=== PATIENT | female | born 1985 | race Caucasian/White ===

== ENCOUNTER 2024-09-20 19:31 | Outpatient (REF) | payer OTHER, SELFPAY ==
[2024-09-23 11:09] LABS: Age Gdln ACOG Testing Note (.); IGP, Aptima HPV, rfx 16/18,45 Note (.)
== END 2024-09-20 19:32 | disposition home or self-care (01) ==
LOC: LAB 19:31
PROVIDERS: Visit Provider Obstetrics & Gynecology
DX: Z01.419 Encounter for gynecological examination (general) (routine) without abnormal findings (principal)
CPT/HCPCS: 88175